=== PATIENT | female | born 1965 | race African-American/Black ===

== ENCOUNTER 2017-03-25 08:13 | Emergency (ER) | payer MEDICAID ==
[~2017-03-25] VITALS: Ht 165.1 cm; Wt 70.0 kg
[2017-03-25] MEDS ORDERED: KETOROLAC 30MG/ML VIAL IV STA (09:19)
[2017-03-25] MEDS ORDERED: ONDANSETRON HCL 4MG/2ML VIAL IV STA (09:19)
[2017-03-25] MEDS ORDERED: SODIUM CHLORIDE 0.9% 1,000 ML IV ONE (09:19)
[2017-03-25] MEDS ORDERED: METOCLOPRAMIDE HCL 10MG/2ML VIAL IV ONE (09:30)
[2017-03-25 10:08] LABS: CLARITY URINE CLEAR (CLEAR); COLOR URINE YELLOW (YELLOW); KETONES URINE NEGATIVE (NEGATIVE); LEUKOCYTE ESTERASE URINE TRACE (NEGATIVE); NITRITE URINE NEGATIVE (NEGATIVE); OCCULT BLOOD URINE NEGATIVE (NEGATIVE); PH URINE >=9.0 (4.5-8.0); PROTEIN URINE NEGATIVE (NEGATIVE); SPECIFIC GRAVITY URINE 1.011 (1.005-1.030)
[2017-03-25 10:15] LABS: BASOPHILS % 0.5 % (0.0-2.0); EOSINOPHILS % 1.8 % (0.0-5.0); HEMATOCRIT. 36.6 % (36.0-48.0); HEMOGLOBIN. 11.9 g/dL (12.0-16.0); LYMPHOCYTES % 27.9 % (20.0-50.0); MEAN CORPUSCULAR HEMOGLOBIN 28.6 pg (28.0-32.0); MEAN CORPUSCULAR VOLUME 88.1 fL (81.0-99.0); MEAN PLATELET VOLUME 10.8 fl (7.4-10.4); MONOCYTES % 7.1 % (2.0-8.0); NEUTROPHILS % 62.7 % (40.0-76.0); PLATELET 187 x1000/uL (130-400); RED BLOOD CELL COUNT 4.15 mill/uL (4.2-5.4); RED CELL DISTRIBUTION WIDTH 13.3 % (11.6-14.6)
[2017-03-25 10:17] LABS: PROTHROMBIN TIME 10.3 sec (9.4-11.6)
[2017-03-25 10:25] LABS: CHLORIDE 108 mEq/L (98-107)
[2017-03-25 13:07] VITALS: BP 121/75
== END 2017-03-25 13:10 | disposition home or self-care (01) ==
LOC: ER 08:37
DX: J06.9 Acute upper respiratory infection, unspecified (principal); I10 Essential (primary) hypertension; R42 Dizziness and giddiness; R11.0 Nausea
CPT/HCPCS: 36415; 70450; 71045; 80053; 81001; 85025; 85610; 87804; 96361; 96374; 96375; 99285; J1885; J2405; J2765; J7030; Z7610

== ENCOUNTER 2018-06-28 17:07 | Emergency (ER) | payer SELFPAY ==
[~2018-06-28] VITALS: Ht 165.1 cm; Wt 80.6 kg
[2018-06-28] MEDS ORDERED: IBUPROFEN 600MG TABLET PO ONE (20:15)
[2018-06-28 20:24] VITALS: BP 179/88
== END 2018-06-28 20:16 | disposition home or self-care (01) ==
LOC: ER 17:07
DX: S09.8XXA Other specified injuries of head, initial encounter (principal); I10 Essential (primary) hypertension; R01.1 Cardiac murmur, unspecified; W18.09XA Striking against other object with subsequent fall, initial encounter; Y93.89 Activity, other specified; Y92.018 Other place in single-family (private) house as the place of occurrence of the external cause
CPT/HCPCS: 99284